=== PATIENT | male | born 1950 | race Caucasian/White ===

== ENCOUNTER 2016-12-20 13:04 | Outpatient (CLI) | payer MEDICARE | END 2016-12-20 13:05 | disposition home or self-care (01) | LOC: LABBT 13:04 | PROVIDERS: ATTEND Neurological Surgery | DX: Z01.818 Encounter for other preprocedural examination (principal); M54.12 Radiculopathy, cervical region ==

== ENCOUNTER 2016-12-25 08:26 | Day surgery (SDC) | payer MEDICARE ==
[2016-12-20 13:25] VITALS: BMI 35.6
[2016-12-25] MEDS ORDERED: Thrombin 5000 UNITS/5 ML VIAL ONE (09:47)
[2016-12-25] MEDS ORDERED: Midazolam HCl 2 mg/2 ml Vial ONE ×2 (09:52→10:13)
[2016-12-25] MEDS ORDERED: Fentanyl 100 MCG/2 ML VIAL ONE (10:13)
[2016-12-25] MEDS ORDERED: Ketorolac Tromethamine 30 MG/ML VIAL ONE (10:38)
[2016-12-25] MEDS ORDERED: diphenhydrAMINE HCl 50 MG/ML 1 ML VIAL ONE (10:38)
[2016-12-25] MEDS ORDERED: Metoclopramide HCl 10 MG/2 ML VIAL ONE (10:38)
[2016-12-25] MEDS ORDERED: Propofol 200 MG/20 ML VIAL ONE (10:38)
[2016-12-25] MEDS ORDERED: Glycopyrrolate 0.2 MG/ML 5 ML SYRINGE ONE (10:38)
[2016-12-25] MEDS ORDERED: Dexamethasone 20 MG/5 ML VIAL ONE (10:38)
[2016-12-25] MEDS ORDERED: Ondansetron HCl/PF 4 MG/2 ML Vial ONE (10:38)
[2016-12-25] MEDS ORDERED: Lidocaine 1% PF 5 ML VIAL ONE (10:38)
--- NOTE | 2016-12-25 11:00 | PRG ---
DATE OF SERVICE: 12/25/2016 Mr. Welsh is a 66-year-old gentleman known to us for outpatient clinic evaluation by Colin Salter , with subsequent phone call by me to plan for a cervical diskectomy and fusion for cervical radicul opathy. I met with Mr. Welsh this morning where he and I discussed again his symptoms which are that of cervical radiculopathy. He says they have slightly improved. He has pain within the shoul benedict blades and pain which radiates down the right greater than left arm. I reviewed with him again his imaging, the diagnosis and the planned surgical procedure which would be a 2-level ACDF. I did answer questions and addressed risks and benefits. He offered informed consent.
[2016-12-25] MEDS ORDERED: Acetaminophen/Codeine 30-300mg Tablet ONE (13:44)
--- NOTE | 2016-12-26 07:52 | OP ---
DATE OF SURGERY: 12/25/2016 SURGEON: Henry Perez M.D. DITCH TENDER: Jag Salter PA-C INDICATION: Pain. DIAGNOSIS: Cervical radiculopathy. PROCEDURE: Anterior cervical discectomy and fusion C4-C6. ANESTHESIA: General. TECHNIQUE: The patient was brought into the operating room and placed under general anesthesia. He was placed on the table in a supine position. A transverse incision was planned over the lateral a spect of the neck on the right. After prepping and draping and after an appropriate operative pause , the incision was created. Soft tissues were swept away from midline. The underlying platysma mus ivone identified and incised. A blunt tissue plane anterior to the sternocleidomastoid muscle was use d to gain access to the prevertebral space. Self-retaining retractor was placed. After confirming the appropriate levels of C-arm fluoroscopy, annulotomy was performed in the C4-5 and C5-6 disk spac es. Under distraction at each level, disk material as well as anterior and posterior osteophytes we re removed. After complete decompression, 7 and 8 mm lordotic PEEK cages were placed within the C4- C5 and C5-C6 disk spaces respectively. An anterior cervical plate was then fashioned in the front o f the spine and secured with a total of 6 screws. Midline and lateral structures were inspected and found to be free from significant trauma. The wound was irrigated. Hemostasis was maintained thro ughout. The wound was then closed in anatomic layers and a pressure dressing was applied. There we re no known procedural complications.
== END 2016-12-25 14:30 | disposition home or self-care (01) ==
LOC: SDC 08:26
PROVIDERS: ATTEND Neurological Surgery
PROC: 0RG20A0 Fusion of 2 or more Cervical Vertebral Joints with Interbody Fusion Device, Anterior Approach, Anterior Column, Open Approach (ICD-10-PCS; principal; 2016-12-25)
DX: M54.12 Radiculopathy, cervical region (principal); Z79.899 Other long term (current) drug therapy
CPT/HCPCS: 22551; 22552; 22853 ×2; 76001; C1713; J0131; J1100; J1200; J1885; J2001; J2250; J2405; J2704; J2765; J3010

== ENCOUNTER 2017-02-06 12:47 | Outpatient (CLI) | payer MEDICARE ==
--- NOTE | 2017-02-06 16:00 | RAD ---
THREE VIEWS OF THE CERVICAL SPINE: Date: 02-06-17 Comparison: None. History: Prior cervical spine surgery, cervical radiculopathy, bilateral hand numbness. FINDINGS: There is prominent anterior osteophyte formation at C3-4 and mild anterior osteophyte formation at C2 -3. Anterior discectomy and fusion hardware is present at C4-5 and C5-6. There is no anterolisthesis or retrolisthesis seen. No evidence for hardware failure is noted. Open mouth odontoid view demonstrates a normal appearing dens and C1-2 articulation. There is multilevel mid cervical spine facet and uncal vertebral osteophyte formation, left greater t bunch right. IMPRESSION: Post-operative and degenerative change within the cervical spine as detailed above. POS: [facility]
== END 2017-02-06 12:48 | disposition home or self-care (01) ==
LOC: TBSIIMAG 12:47
PROVIDERS: ATTEND Neurological Surgery
DX: M47.22 Other spondylosis with radiculopathy, cervical region (principal); Z98.890 Other specified postprocedural states
CPT/HCPCS: 72040

== ENCOUNTER 2017-05-04 06:08 | Day surgery (SDC) | payer MEDICARE ==
[2017-05-03 13:02] VITALS: BMI 35.2
--- NOTE | 2017-05-03 23:05 | HP ---
HISTORY OF PRESENT ILLNESS: Mr. Welsh is a pleasant 66-year-old man who is known to us for recen t ACDF who in the postoperative period appeared to develop worsening right hand numbness and pain in the distribution of carpal tunnel syndrome while his radicular pains and neck pains had improved afte r surgery drastically. He returns now to discuss his symptoms. PAST MEDICAL HISTORY: Significant for hypertension, anxiety, osteoarthritis, hypercholesterolemia, g astroesophageal reflux disease. PAST SURGICAL HISTORY: Unspecified. CURRENT MEDICATIONS: Prednisone, clonazepam, metoprolol. ALLERGIES: No known drug allergies. PHYSICAL EXAMINATION: NEUROLOGIC: The patient is alert and oriented x3. Gait is normal. No ataxia. Upper extremity antoni r exam is normal. He has a positive right median nerve Tinel's. ASSESSMENT: Right carpal tunnel syndrome. PLAN: Dr. Perez met with the patient, reviewed imaging, and advocated for right carpal tunnel releas e. He explained to the patient the risks, benefits, alternatives of the procedure. The patient expr essed understanding and would like to move forward with surgery as discussed. I do believe the patie nt is mentally competent and capable to make medical decisions for himself and move forward with surg patrick as planned. Jag Salter PA-C dictating for Dr. Perez.
[2017-05-04] MEDS ORDERED: CEFAZOLIN/Water 2 GM/20 ML SYRINGE ONE (06:52)
[2017-05-04] MEDS ORDERED: Lidocaine 1% w/Epinephrine 1:200K 30 ML VIAL ONE (08:18)
[2017-05-04] MEDS ORDERED: Propofol 500 MG/50 ML VIAL ONE (08:52)
[2017-05-04] MEDS ORDERED: Fentanyl 100 MCG/2 ML VIAL ONE (09:06)
--- NOTE | 2017-05-04 10:31 | OP ---
DATE OF PROCEDURE: 05/04/2017 SURGEON: Henry Perez M.D. DIGITAL CIRCUIT DESIGNER: Colin Salter PA-C. INDICATION: Pain. PREOPERATIVE DIAGNOSIS: Carpal tunnel syndrome, right. POSTOPERATIVE DIAGNOSIS: Carpal tunnel syndrome, right. PROCEDURE: Right carpal tunnel release. ANESTHESIA: TIVA and local. PROCEDURE IN DETAIL: The patient was brought into the operating room and placed under anesthesia. H is right arm was extended perpendicular to his body and the arm was prepped up to the level of the ax illa. A linear incision was planned across the crease of the wrist in line with the long axis of the fourth digit. This area was infiltrated with lidocaine. Following an appropriate operative pause, the incision was created. A self-retaining retractor was placed in the wound for optimal exposure. The carpal tunnel ligament was identified and incised using a 15 blade knife. The incision was exten ded in proximal and distal directions until there was complete decompression of the carpal tunnel hernan ments. The wound was irrigated. Hemostasis was maintained throughout. The incision was closed in a single layer technique.
[2017-05-04] MEDS ORDERED: PHENYLEPHRINE-NS 100 MCG/ML 10 ML SYRINGE ONE (16:19)
== END 2017-05-04 10:45 | disposition home or self-care (01) ==
LOC: SDC 06:08
PROVIDERS: ATTEND Neurological Surgery
PROC: 01N50ZZ Release Median Nerve, Open Approach (ICD-10-PCS; principal; 2017-05-04)
DX: G56.01 Carpal tunnel syndrome, right upper limb (principal); I10 Essential (primary) hypertension; F32.9 Major depressive disorder, single episode, unspecified; M19.90 Unspecified osteoarthritis, unspecified site; E78.00 Pure hypercholesterolemia, unspecified; K21.9 Gastro-esophageal reflux disease without esophagitis; Z79.52 Long term (current) use of systemic steroids; Z79.899 Other long term (current) drug therapy; Z98.1 Arthrodesis status; Z98.890 Other specified postprocedural states
CPT/HCPCS: J2704; J3010